=== PATIENT | male | born 1995 | race Caucasian/White ===

== ENCOUNTER 2018-04-16 12:50 | Emergency (ER) | payer MEDICAID, OTHER ==
[2018-04-16] MEDS: ACETAMINOPHEN 325 MG TAB PO (15:04)
== END 2018-04-16 15:17 | disposition home or self-care (01) ==
LOC: E/R 12:50
DX: F11.10 Opioid abuse, uncomplicated (principal)
CPT/HCPCS: 70450; 72125; 82962; 99284-25